=== PATIENT | female | born 1970 | race Caucasian/White ===

== ENCOUNTER 2016-10-20 07:08 | Emergency (ER) | payer SELFPAY ==
--- NOTE | ~2016-10-20 | EKG ---
PATIENT: JESSICA SEVERINO UNIT #: [id number] Ventricular Rate: 82 BPM Atrial Rate: 82 BPM P-R Interval: 138 ms QRS Duration: 86 ms Q-T Interval: 412 ms QTC Calculation(Bezet): 481 ms P [place]: 61 degrees Calculated R [place]: 8 degrees Calculated T [place]: 47 degrees Diagnosis Line: Normal sinus rhythm Diagnosis Line: RSR' or QR pattern in V1 suggests right Diagnosis Line: ventricular conduction delay Diagnosis Line: Prolonged QT Diagnosis Line: Abnormal ECG Diagnosis Line: No previous ECGs available Diagnosis Line: Confirmed by KIARA PULIDO MD ([id number]) on 10/23/2016 Diagnosis Line: 9:34:43 AM INTERPRETING MD: ASHOK ECHEVERRIA
--- NOTE | ~2016-10-20 | CR72 ---
[facility]. [facility] A Service of [facility] RADIOLOGY TEXT RESULTS PATIENT: JESSICA SEVERINO LOCATION: SED : 66 UNIT #: [id number] AGE: [address]: Bud Munguia MD SEX: F ORDER DR: [id number] [address] [address] [id number] E MR#: [id number] Acc #: [id number] NAME: JESSICA SEVERINO : 1970 SEX: F STUDY DATE/TIME: 10/20/2016 6:44 UNIT: SED ROOM: STUDY DESCRIPTION: CR Chest Single View Portable Attending Physician: Bud Munguia M.D. Ordering Physician: Oliver Cline M.D. Primary Care Physician: Primary Care Physician No MEDICAL IMAGING REPORT This report is preliminary unless electronic signature is present. EXAM Portable chest 10/20/2016 HISTORY 46-year-old female with shortness of air for 1 week. COMPARISON None. FINDINGS Frontal chest demonstrates mild bibasilar atelectasis. No other focal pulmonary infiltrates. No large pleural effusions. No pneumothorax. Heart size and mediastinum within normal limits. Pulmonary vasculature unremarkable. IMPRESSION Mild bibasilar atelectasis. No other acute chest findings. Dictated by... Lorenzo Hoffman M.D. THIS IS AN ELECTRONICALLY VERIFIED REPORT Lorenzo Hoffman M.D. at 10/20/2016 2:12 PM Ada TD: 10/20/2016 08:18 JOB #: [id number] MEDICAL IMAGING REPORT Page 1 of 1
--- NOTE | ~2016-10-20 | CT16 ---
[facility] A Service of [facility] RADIOLOGY TEXT RESULTS PATIENT: JESSICA SEVERINO LOCATION: SED : 66 UNIT #: [id number] AGE: [address]: Bud Munguia MD SEX: F ORDER DR: [id number] [address] [address] [id number] E MR#: [id number] Acc #: [id number] NAME: JESSICA SEVERINO : 1970 SEX: F STUDY DATE/TIME: 10/20/2016 8:28 UNIT: SED ROOM: STUDY DESCRIPTION: CT Angio Chest for PE Attending Physician: Bud Munguia M.D. Ordering Physician: Bud Munguia M.D. Primary Care Physician: No Primary Care Physician MEDICAL IMAGING REPORT This report is preliminary unless electronic signature is present. EXAM CTA chest with contrast PE protocol 10/20/2016 HISTORY 46-year-old female with shortness of air and chest pain for 10 days. COMPARISON None. TECHNIQUE Helical scan performed through the chest following the timed bolus administration of IV contrast per PE protocol. Coronal 3-D MIP reconstructions. Sagittal reformatted images. This CT exam was performed with one or more of the following radiation dose reduction techniques: automatic exposure control, adjustment of mA and/or kV according to patient size, and iterative reconstruction. FINDINGS There is adequate opacification of the pulmonary arteries with no filling defects noted. Thoracic aorta normal in course and caliber without dissection. Heart size is normal. No pericardial effusion. No pleural effusions. No pneumothorax. There is mild bibasilar atelectasis/infiltrate. Early pneumonia not excluded in the appropriate clinical setting. No other focal pulmonary infiltrates. Emphysema. Mild atelectasis/infiltrate in the lingula. Incidental scanning through the upper abdomen is unremarkable. No acute bony abnormality. IMPRESSION 1. Negative for pulmonary emboli. [facility] A Service of [facility] RADIOLOGY TEXT RESULTS PATIENT: JESSICA SEVERINO LOCATION: SED : 66 UNIT #: [id number] AGE: [address]: Bud Munguia MD SEX: F ORDER DR: 2. Negative for thoracic aortic aneurysm/dissection. 3. Bibasilar atelectasis/infiltrate as well as atelectasis/infiltrate in the lingula. Early pneumonia not excluded in the appropriate clinical setting. 4. Emphysema. Dictated by... Lorenzo Hoffman M.D. THIS IS AN ELECTRONICALLY VERIFIED REPORT Lorenzo Hoffman M.D. at 10/20/2016 2:13 PM Savita TD: 10/20/2016 09:14 JOB #: [id number] MEDICAL IMAGING REPORT Page 1 of 1
[2016-10-20 07:02] LABS: BASOPHIL# 0.1 X10e3 (0-0.3); EOSINOPHIL# 0.4 X10e3 (0-0.7); EOSINOPHIL% 2.6 % (0.0-7.0); HEMATOCRIT 49.3 % (35.0-45.0); HEMOGLOBIN 16.3 gm/dL (12.0-16.0); LYMPHOCYTE# 6.2 X10e3 (1.0-3.5); LYMPHOCYTE% 46.2 % (17.0-45.0); MEAN CELL VOLUME 90.9 FL (83-96); MEAN PLATELET VOLUME 9.4 FL (6.5-11.5); MONOCYTE% 7.5 % (3.0-12.0); NEUTROPHIL# 5.8 X10e3 (1.5-7.1); NEUTROPHIL% 42.7 % (40-75); PLATELET COUNT 300 X10e3 (140-420); RED BLOOD COUNT 5.43 X10e (3.90-5.30); RED CELL DISTRIBUTION WIDTH 13.8 % (11.0-15.5); WHITE BLOOD COUNT 13.5 X10e3 (4.0-10.5)
[2016-10-20 07:04] LABS: DIFF IND NO
[~2016-10-20 07:08] MED LIST: ADVIL200 M1 PO; ERYC250 MG PO; NO MEDICATIONS; ULTRAM PO
[2016-10-20 07:12] LABS: PROTHROMBIN TIME (PATIENT) 11.1 SECONDS (9.5-12.4)
[2016-10-20 07:19] LABS: ALBUMIN SERUM 4.1 g/dL (3.5-5.0); BILIRUBIN, DIRECT 0.2 mg/dL (0.0-0.2); BILIRUBIN,INDIRECT 0.5 mg/dL (0.0-0.9); BILIRUBIN,TOTAL 0.7 mg/dL (0.2-2.0); BUN/CREATININE RATIO 15.55; CALCIUM SERUM 8.6 mg/dL (8.4-10.2); CREATININE SERUM 0.9 mg/dL (0.6-1.4); GLOM FILT RATE Estimated 75.7 mL/min (>60); POTASSIUM 4.3 mmol/L (3.5-5.1); PROTEIN TOTAL SERUM 7.4 g/dL (6.0-8.3)
[2016-10-20 07:21] LABS: ARTERIAL BLOOD GAS CARBOXY HB 4.2 %sat (0.0-9.0); ARTERIAL BLOOD GAS HCO3 20.7 mmol/L
[2016-10-20 07:21] LABS: POC - CKMB 9.9 ng/mL (0.0-7.9); POC - TROPONIN <0.05 ng/mL (<=0.05)
[2016-10-20 07:23] LABS: ARTERIAL BLOOD GAS ALLEN TEST NORMAL; ARTERIAL BLOOD GAS ART SITE LEFT RADIAL; ARTERIAL DRAW? YES
== END 2016-10-20 10:37 | disposition home or self-care (01) ==
LOC: SED 07:08
PROVIDERS: Emergency Medicine
DX: J18.1 Lobar pneumonia, unspecified organism (principal); R73.9 Hyperglycemia, unspecified; F17.200 Nicotine dependence, unspecified, uncomplicated; Z88.0 Allergy status to penicillin; Z88.5 Allergy status to narcotic agent
CPT/HCPCS: 36415; 36600; 71010; 71275; 80048; 80076; 82553; 82803; 83880; 84484; 85025; 85610; 85730; 87040; 93005; 96365; 96375; 99284; 99291; J1956; J2930; Q9967